=== PATIENT | male | born 1945 | race Caucasian/White ===

== ENCOUNTER 2016-07-27 22:25 | Emergency (ER) | payer MEDICARE, OTHER ==
[~2016-07-27] VITALS: Ht 172.7 cm; Wt 75.0 kg
[2016-07-27 22:51] VITALS: BP 241/101; PULSE 108; RESP 18; TEMP 98.1; O2SAT 98
[2016-07-27] MEDS ORDERED: DILA8TAB4 PO (22:51)
--- NOTE | 2016-07-27 22:55 | PD ---
HPI Chief Complaint: Psychiatric Symptoms Time Seen by Provider: 22:38 Travel History International Travel<30 days: No Contact w/Intl Traveler<30days: No Traveled to known affect area: No History of Present Illness HPI The patient is a 71-year-old male who presents to the emergency department via [employer] as a Shah act. According to the police affidavit the police detective responded to the patient's residence and reference to verbal disturbance. Mother speak with the patient referencing a call for verbal disturbance, the patient apparently stated that if police did not remove his son from his home they would find him in the street. The police affidavit states that the patient states he had thoughts of hurting his son. They also state the patient may have Alzheimer's as well as other mental illness and that the patient's son alleged he has been recently delusional and knocking on neighbors doors requesting cigarettes that late hours of the evening /early hours of the morning even though he does not smoke. The patient denies any hallucinations or delusions. The patient does state he has a history of depression and OCD and is followed by his psychiatrist Dr. Zuluaga. The patient also notes a history of chronic pain secondary to previous back surgeries and takes Dilaudid and Adderall on a daily basis. The patient denies any alcohol or illicit drug use. The patient denies any suicidal ideation or homicidal ideation. PFSH Past Medical History COPD: Yes Diminished Hearing: No Medical other: Yes (CHRONIC BACK PAIN) Tetanus Vaccination: Unknown Influenza Vaccination: No Past Surgical History Surgical History: Unable to Obtain Social History Alcohol Use: No Tobacco Use: No Substance Use: No Allergies-Medications (Allergen,Severity, Reaction): Coded Allergies: No Known Allergies (Unverified , 07/27/16) Reported Meds & Prescriptions Reported Meds & Active Scripts Active Reported Dilaudid (Hydromorphone HCl) 8 Mg Tab 16 Mg PO Q6H PRN Review of Systems Except as stated in HPI: all other systems reviewed are Neg Cardiovascular: No: Chest Pain or Discomfort Respiratory: No: Shortness of Breath Gastrointestinal: No: Nausea, Vomiting Musculoskeletal: Positive: Pain (chronic neck and back pain) Psychiatric: Positive: Depression, Other (history of OCD), No: Suicidal Ideations, Substance Abuse, Homicidal Ideation Physical Exam Narrative GENERAL: Awake, alert, slightly agitated 71-year-old male who appears his stated age and is in no acute respiratory distress. SKIN: Warm and dry. HEAD: Atraumatic. Normocephalic. EYES: Pupils equal and round. No scleral icterus. No injection or drainage. ENT: No nasal bleeding or discharge. Mucous membranes pink and moist. NECK: Trachea midline. No JVD. CARDIOVASCULAR: Regular rate and rhythm. No murmur appreciated. RESPIRATORY: No accessory muscle use. Clear to auscultation. Breath sounds equal bilaterally. GASTROINTESTINAL: Abdomen soft, non-tender, nondistended. Back: Well-healed scar in the lumbar and thoracic region. MUSCULOSKELETAL: No obvious deformities. No clubbing. No cyanosis. No edema. NEUROLOGICAL: Awake and alert. No obvious cranial nerve deficits. Motor grossly within normal limits. Normal speech. Nonfocal. Oriented to person, place, year, and director of reservations. PSYCHIATRIC: Slightly agitated at being placed under a Shah act.. Data Data Last Documented VS Vital Signs Date Time Temp Pulse Resp B/P Pulse Ox O2 Delivery O2 Flow Rate FiO2 07/27/16 23:18 111 20 140/68 98 Room Air 07/27/16 22:59 98.1 Orders Complete Blood Count With Diff (07/27/16 22:48) Comprehensive Metabolic Panel (07/27/16 22:48) Psych Screen (07/27/16 22:48) Drug Screen, Random Urine (07/27/16 22:48) Alcohol (Ethanol) (07/27/16 22:48) Lorazepam (Ativan) (07/27/16 23:00) Lorazepam Inj (Ativan Inj) (07/27/16 23:15) Haloperidol Inj (Haldol Inj) (07/27/16 23:15) Restraints Violent (07/27/16 23:05) Labs Laboratory Tests Test 07/27/16 07/27/16 22:45 23:00 Urine Opiates Screen NEG Urine Barbiturates Screen NEG Urine Amphetamines Screen POS Urine Benzodiazepines Screen NEG Urine Cocaine Screen NEG Urine Cannabinoids Screen NEG White Blood Count 11.5 TH/MM3 Red Blood Count 6.03 MIL/MM3 Hemoglobin 17.2 GM/DL Hematocrit 51.4 % Mean Corpuscular Volume 85.2 FL Mean Corpuscular Hemoglobin 28.5 PG Mean Corpuscular Hemoglobin 33.5 % Concent Red Cell Distribution Width 16.1 % Platelet Count 276 TH/MM3 Mean Platelet Volume 9.2 FL Neutrophils (%) (Auto) 78.0 % Lymphocytes (%) (Auto) 13.1 % Monocytes (%) (Auto) 7.7 % Eosinophils (%) (Auto) 0.5 % Basophils (%) (Auto) 0.7 % Neutrophils # (Auto) 9.0 TH/MM3 Lymphocytes # (Auto) 1.5 TH/MM3 Monocytes # (Auto) 0.9 TH/MM3 Eosinophils # (Auto) 0.1 TH/MM3 Basophils # (Auto) 0.1 TH/MM3 CBC Comment DIFF FINAL Differential Comment Sodium Level 140 MEQ/L Potassium Level 3.9 MEQ/L Chloride Level 105 MEQ/L Carbon Dioxide Level 24.1 MEQ/L Anion Gap 11 MEQ/L Blood Urea Nitrogen 21 MG/DL Creatinine 1.31 MG/DL Estimat Glomerular Filtration 54 ML/MIN Rate Random Glucose 157 MG/DL Calcium Level 9.9 MG/DL Total Bilirubin 0.7 MG/DL Aspartate Amino Transf 24 U/L (AST/SGOT) Alanine Aminotransferase 36 U/L (ALT/SGPT) Alkaline Phosphatase 49 U/L Total Protein 7.9 GM/DL Albumin 4.5 GM/DL Ethyl Alcohol Level LESS THAN 3 MG/DL MDM Medical Decision Making Medical Screen Exam Complete: Yes Emergency Medical Condition: Yes Medical Record Reviewed: Yes Interpretation(s) Laboratory Tests Test 07/27/16 07/27/16 22:45 23:00 Urine Opiates Screen NEG Urine Barbiturates Screen NEG Urine Amphetamines Screen POS Urine Benzodiazepines Screen NEG Urine Cocaine Screen NEG Urine Cannabinoids Screen NEG White Blood Count 11.5 TH/MM3 Red Blood Count 6.03 MIL/MM3 Hemoglobin 17.2 GM/DL Hematocrit 51.4 % Mean Corpuscular Volume 85.2 FL Mean Corpuscular Hemoglobin 28.5 PG Mean Corpuscular Hemoglobin 33.5 % Concent Red Cell Distribution Width 16.1 % Platelet Count 276 TH/MM3 Mean Platelet Volume 9.2 FL Neutrophils (%) (Auto) 78.0 % Lymphocytes (%) (Auto) 13.1 % Monocytes (%) (Auto) 7.7 % Eosinophils (%) (Auto) 0.5 % Basophils (%) (Auto) 0.7 % Neutrophils # (Auto) 9.0 TH/MM3 Lymphocytes # (Auto) 1.5 TH/MM3 Monocytes # (Auto) 0.9 TH/MM3 Eosinophils # (Auto) 0.1 TH/MM3 Basophils # (Auto) 0.1 TH/MM3 CBC Comment DIFF FINAL Differential Comment Sodium Level 140 MEQ/L Potassium Level 3.9 MEQ/L Chloride Level 105 MEQ/L Carbon Dioxide Level 24.1 MEQ/L Anion Gap 11 MEQ/L Blood Urea Nitrogen 21 MG/DL Creatinine 1.31 MG/DL Estimat Glomerular Filtration 54 ML/MIN Rate Random Glucose 157 MG/DL Calcium Level 9.9 MG/DL Total Bilirubin 0.7 MG/DL Aspartate Amino Transf 24 U/L (AST/SGOT) Alanine Aminotransferase 36 U/L (ALT/SGPT) Alkaline Phosphatase 49 U/L Total Protein 7.9 GM/DL Albumin 4.5 GM/DL Ethyl Alcohol Level LESS THAN 3 MG/DL Differential Diagnosis Differential diagnosis includes Shah act, schizoaffective disorder, depressive disorder NOS, mood disorder NOS, adjustment reaction, bipolar affective disorder. Narrative Course Labs were drawn and sent. Psychiatric evaluation was ordered. Initially the patient was ordered Ativan 1 mg orally, however, the patient ran out of his room and had to be restrained by security prior to leaving the premises. Therefore, the patient was administered Ativan 2 mg IM and Haldol 5 mg IM and the patient was placed in bilateral restraints. Labs reveal slightly elevated white count and hemoglobin/hematocrit was slightly elevated creatinine, most likely secondary to hemoconcentration and mild dehydration. Patient's blood pressure improved after he was sedated for his agitation. Patient is medically cleared to be evaluated by psychiatry. Diagnosis Primary Impression: Unspecified episodic mood disorder Condition: Stable Kash Barrios MD Jul 27, 2016 22:55
[2016-07-27 22:59] VITALS: BP 241/101; PULSE 89; RESP 22; TEMP 98.1; O2SAT 98
[2016-07-27] MEDS ORDERED: LORazepam 1 MG TAB PO ONE (23:00)
[2016-07-27 23:08] LABS: BASOPHIL # 0.1 TH/MM3 (0-0.2); BASOPHIL % 0.7 % (0.0-2.0); EOSINOPHIL # 0.1 TH/MM3 (0-0.4); EOSINOPHIL % 0.5 % (0.0-4.0); HEMATOCRIT 51.4 % (39.0-51.0); HEMO FLAGS DIFF FINAL; LYMPH % 13.1 % (9.0-44.0); LYMPHOCYTE # 1.5 TH/MM3 (1.0-4.8); MEAN CELL VOLUME 85.2 FL (80.0-100.0); MEAN CORPUSCULAR HEMOGLOBIN 28.5 PG (27.0-34.0); MEAN CORPUSCULAR HGB CONC 33.5 % (32.0-36.0); MONO % 7.7 % (0.0-8.0); PLATELET COUNT 276 TH/MM3 (150-450); RED BLOOD COUNT 6.03 MIL/MM3 (4.50-5.90); RED CELL DISTRIBUTION WIDTH 16.1 % (11.6-17.2); WHITE BLOOD COUNT 11.5 TH/MM3 (4.0-11.0)
[2016-07-27] MEDS ORDERED: LORazepam 2 MG/ML VIAL IM ONE (23:15)
[2016-07-27] MEDS ORDERED: HALOPERIDOL LACTATE 5 MG/ML AMP IM ONE (23:15)
[2016-07-27 23:17] LABS: AMPHETAMINE, URINE POS (NEG); BARBITURATES, URINE NEG (NEG); COCAINE, URINE NEG (NEG)
[2016-07-27 23:18] VITALS: BP 140/68; PULSE 111; RESP 20; O2SAT 98
[2016-07-27 23:35] LABS: ALKALINE PHOSPHATASE 49 U/L (45-117); ALT (GPT) 36 U/L (12-78); ANION GAP 11 MEQ/L (5-15); AST (GOT) 24 U/L (15-37); BICARBONATE 24.1 MEQ/L (21.0-32.0); BLOOD UREA NITROGEN 21 MG/DL (7-18); CHLORIDE 105 MEQ/L (98-107); GLOMERULAR FILTRATION RATE 54 ML/MIN (>89); POTASSIUM 3.9 MEQ/L (3.5-5.1); SODIUM (NA) 140 MEQ/L (136-145); TOTAL BILIRUBIN ADULT 0.7 MG/DL (0.2-1.0)
[2016-07-28 10:03] VITALS: BP 178/74; PULSE 65; RESP 16; TEMP 98.2; O2SAT 99
[2016-07-28 14:31] VITALS: BP 168/78
--- NOTE | 2016-07-28 14:42 | PD ---
History of Present Illness Chief Complaint: Psychiatric Symptoms Time Seen by Provider: 14:15 Travel History International Travel<30 Days: No Contact w/Intl Traveler<30days: No Known affected area: No Legal Status Legal Status: Shah Act Shah Act Signed By: History of Present Illness: This is a 71-year-old male who was admitted under a Shah act for allegedly threatening to harm his son. The patient explains that his son has been living in his home for 6 years without paying any bills and the patient wants him out. The son called the police because of a verbal altercation and the patient told the police he had thoughts of harming his son even though he denies this at the present time. In fact, at this time the patient is calm and cooperative. He has no suicidal or homicidal ideation. No psychotic symptoms and no significant cognitive problems. The son alleges that father may be demented but the father is 71 years old and showed no signs of dementia on clinical examination. Father is willing to verbally contract for safety and does not meet admission criteria. Therefore his Shah act was lifted and the father was referred to Dr. BRITT for future care. PFSH Past Medical History COPD: Yes Diabetes: Yes Diminished Hearing: No Medical other: Yes (CHRONIC BACK PAIN) Tetanus Vaccination: Unknown Influenza Vaccination: No Past Surgical History Surgical History: Unable to Obtain Psychiatric History Psychiatric History Hx Psychiatric Treatment: Treated by Dr. Jeremiah britt for depression and anxiety. History of Inpatient Treatment: No Guns or firearms in home: No Social History Hx Alcohol Use: No Hx Tobacco Use: No Hx Substance Use: No Hx of Substance Use Treatment: No Allergies-Medications (Allergen,Severity, Reaction): Coded Allergies: No Known Allergies (Unverified , 07/27/16) Reported Meds & Prescriptions Reported Meds & Active Scripts Active Reported Dilaudid (Hydromorphone HCl) 8 Mg Tab 16 Mg PO Q6H PRN Review of Systems ROS Limitations: Clinical Condition Except as stated in HPI: all other systems reviewed are Neg Exam Alert: Yes [place]: Person, Place, Date, Situation Mood: Calm Affect: Euthymic Speech: Clear Eye Contact: Normal Memory Intact: Immediate, Recent, Remote Delusions: No Insight/Judgement Adequate with no behavioral disturbances MDM Medical Decision Making Medical Record Reviewed: Yes Assessment/Plan Patient Alyssa act was lifted and he was referred back to Dr. Mike Britt for future treatment. Orders Complete Blood Count With Diff (07/27/16 22:48) Comprehensive Metabolic Panel (07/27/16 22:48) Psych Screen (07/27/16 22:48) Drug Screen, Random Urine (07/27/16 22:48) Alcohol (Ethanol) (07/27/16 22:48) Lorazepam (Ativan) (07/27/16 23:00) Lorazepam Inj (Ativan Inj) (07/27/16 23:15) Haloperidol Inj (Haldol Inj) (07/27/16 23:15) Restraints Violent (07/27/16 23:05) Diet Regular Basic (07/28/16 Breakfast) Diet Regular Basic (07/28/16 Lunch) Results Vital Signs Date Time Temp Pulse Resp B/P Pulse Ox O2 Delivery O2 Flow Rate FiO2 07/28/16 14:31 87 15 168/78 99 07/28/16 10:03 98.2 65 16 178/74 99 Room Air 07/27/16 23:18 111 20 140/68 98 Room Air 07/27/16 22:59 98.1 89 22 241/101 98 07/27/16 22:51 98.1 108 18 241/101 98 Room Air 07/27/16 22:45 16 Laboratory Tests Test 07/27/16 07/27/16 22:45 23:00 Urine Opiates Screen NEG Urine Barbiturates Screen NEG Urine Amphetamines Screen POS Urine Benzodiazepines Screen NEG Urine Cocaine Screen NEG Urine Cannabinoids Screen NEG White Blood Count 11.5 Red Blood Count 6.03 Hemoglobin 17.2 Hematocrit 51.4 Mean Corpuscular Volume 85.2 Mean Corpuscular Hemoglobin 28.5 Mean Corpuscular Hemoglobin 33.5 Concent Red Cell Distribution Width 16.1 Platelet Count 276 Mean Platelet Volume 9.2 Neutrophils (%) (Auto) 78.0 Lymphocytes (%) (Auto) 13.1 Monocytes (%) (Auto) 7.7 Eosinophils (%) (Auto) 0.5 Basophils (%) (Auto) 0.7 Neutrophils # (Auto) 9.0 Lymphocytes # (Auto) 1.5 Monocytes # (Auto) 0.9 Eosinophils # (Auto) 0.1 Basophils # (Auto) 0.1 CBC Comment DIFF FINAL Differential Comment Sodium Level 140 Potassium Level 3.9 Chloride Level 105 Carbon Dioxide Level 24.1 Anion Gap 11 Blood Urea Nitrogen 21 Creatinine 1.31 Estimat Glomerular Filtration 54 Rate Random Glucose 157 Calcium Level 9.9 Total Bilirubin 0.7 Aspartate Amino Transf 24 (AST/SGOT) Alanine Aminotransferase 36 (ALT/SGPT) Alkaline Phosphatase 49 Total Protein 7.9 Albumin 4.5 Ethyl Alcohol Level LESS THAN 3 Diagnosis Primary Impression: Unspecified episodic mood disorder Additional Impression: Adjustment disorder with mixed disturbance of emotions and conduct Referrals: NO PRIMARY CARE PHYSICIAN (PCP) call for appointment Departure Forms: Tests/Procedures Patient Instructions: General Instructions, Mood Disorders (ED) Additional Instructions: NO SI/HI. PT OK FOR DISCHARGE. Disposition: 01 DISCHARGE HOME Condition: Stable Problem Qualifiers Ruben Potter MD Jul 28, 2016 14:42
== END 2016-07-28 14:32 | disposition home or self-care (01) ==
LOC: NEPE 22:25
DX: F39 Unspecified mood [affective] disorder (principal); F43.25 Adjustment disorder with mixed disturbance of emotions and conduct; J44.9 Chronic obstructive pulmonary disease, unspecified
CPT/HCPCS: 80053; 80307; 80320; 85025; 96372; 99284; J1630; J2060